=== PATIENT | female | born 1965 ===

== ENCOUNTER 2020-12-25 10:45 | Emergency (ER) | payer SELFPAY ==
[~2020-12-25] VITALS: Ht 175.3 cm; Wt 99.8 kg
[2020-12-25] MEDS ORDERED: VENTOLIN HFA18 GM INH (11:07)
[2020-12-25] MEDS ORDERED: LOSARTAN POTASS25 MG PO (11:08)
[2020-12-25] MEDS ORDERED: AMLODIPINE BESYL5 MG PO (11:08)
[2020-12-25] MEDS ORDERED: SYMBICORT 80-10.2 GM INH (11:51)
[2020-12-25] MEDS ORDERED: PREDNISONE20 MG PO (13:36)
--- NOTE | 2020-12-25 19:59 | EKG ---
[facility] [address] [place] [address] Signed Normal sinus rhythm Possible Left atrial enlargement Borderline ECG No previous ECGs available Confirmed by EMMANUEL RO MD ([id number]) on 12/25/2020 7:58:49 PM Electronically Signed By: EMMANUEL RO MD 12/25/201958 PATIENT NAME: ABRIL MIRANDADANIEL Shoemaker Electrocardiogram DATE OF : 69 PHYSICIAN: EMMANUEL RO MD REPORT #: [id number] REPORT IS CONFIDENTIAL AND NOT TO BE RELEASED WITHOUT AUTHORIZATION
== END 2020-12-25 13:45 | disposition home or self-care (01) ==
LOC: ED 10:45
DX: J45.901 Unspecified asthma with (acute) exacerbation (principal); I10 Essential (primary) hypertension; Z88.1 Allergy status to other antibiotic agents; Z79.899 Other long term (current) drug therapy
CPT/HCPCS: 71045; 80053; 83735; 83880; 84484; 85025; 93005; 93010; 99285-25